=== PATIENT | female | born 1980 | race African-American/Black ===

== ENCOUNTER 2018-09-21 23:06 | Emergency (ER) | payer BC ==
[~2018-09-21] VITALS: Ht 177.8 cm; Wt 71.7 kg
[2018-09-21 23:58] VITALS: BP 167/97
--- NOTE | 2018-09-22 00:15 | PHYS DOC ---
Past Medical History Past Medical History: No Pertinent History, Hypertension (QUAN PATRICK) Past Surgical History: No Surgical History (QUAN PATRICK) Alcohol Use: None Drug Use: None (QUAN PATRICK) Adult General Chief Complaint Chief Complaint: CONSTIPATION HPI HPI Patient is a 38 year old F who has been having trouble with constipation and hard stools and today passed a hard stool and now has pain in her rectum and feels like something is "falling out". (QUAN PATRICK) Review of Systems Review of Systems Constitutional: Denies fever or chills Respiratory: Denies cough or shortness of breath Cardiovascular: Denies chest pain GI: Denies abdominal pain, nausea, vomiting. Reports constipation and rectal pain. : Denies dysuria or hematuria Musculoskeletal: Denies back pain or joint pain Integument: Denies rash or skin lesions Neurologic: Denies headache, focal weakness or sensory changes All other systems were reviewed and found to be within normal limits, except as documented in this note. (QUAN PATRICK) Allergies Allergies Allergies Coded Allergies Type Severity Reaction Last Updated Verified No Known Drug Allergies 05/10/13 No (ANOOP AREVALO DO) Physical Exam Physical Exam Constitutional: Well developed, well nourished, no acute distress, non-toxic appearance. Neck: Normal range of motion, no tenderness, supple, no stridor. Cardiovascular:Heart rate regular rhythm, no murmur Lungs & Thorax: Bilateral breath sounds clear to auscultation Abdomen: Bowel sounds normal, soft, no tenderness, no masses, no pulsatile mas ses. Skin: Warm, dry Back: No tenderness, no CVA tenderness. Extremities: No tenderness, no cyanosis, no clubbing, ROM intact, no edema. Neurologic: Alert and oriented X 3, normal motor function, normal sensory function, no focal deficits noted. Psychologic: Affect normal, judgement normal, mood normal. Rectal exam: Pt has protruding, engorged hemorrhoid, with small area of bleeding noted. She also has swelling and tenderness of perineum. Rectal exam was done and there is no hard stool in rectal vault. (QUAN PATRICK) Current Patient Data Vital Signs Vital Signs Date Time Temp Pulse Resp B/P (MAP) Pulse Ox O2 Delivery O2 Flow Rate FiO2 09/21/18 23:58 98.7 83 16 167/97 (120) 100 Room Air 98.7 (ANOOP AREVALO DO) EKG EKG [] (QUAN PATRICK) Radiology/Procedures Radiology/Procedures [] (QUAN PATRICK) Course & Med Decision Making Course & Med Decision Making Pertinent Labs and Imaging studies reviewed. (See chart for details) Pt has no abd pain and reports large hard stool today. No impaction noted. Large inflamed hemorrhoid present but without any signs of being thrombosed. Will write or colace and Anusol HC suppositories. Have recommended sitz baths, tucks pads and putting ice packs wrapped in towel in underwear. Recommend close f/u with PCP for recheck. (QUAN PATRICK) Dragon Disclaimer Dragon Disclaimer This electronic medical record was generated, in whole or in part, using a voice recognition dictation system. (QUAN PATRICK) Departure Departure Impression: Primary Impression: Hemorrhoid prolapse Additional Impression: Constipation Disposition: 01 HOME, SELF-CARE Condition: STABLE Referrals: JUSTINA LYLES MD (PCP) Patient Instructions: Constipation, Adult, [id number], Hemorrhoids, [id number] Additional Instructions: You have a large engorged hemorrhoid. Do sitz baths at home (warm water without soap to cleanse and soothe the tissue in the rectum and vaginal area). Ice packs in your underwear with a protective layer such as a washcloth between the skin and the ice. Follow up with your doctor. If symptoms are not improving, you may need to see a specialist. Scripts Ibuprofen (IBUPROFEN) 400 Mg Tablet 400 MG PO PRN Q6HRS PRN for INFLAMMATION, #15 TAB Prov: QUAN PATRICK 09/22/18 Docusate Sodium (COLACE) 100 Mg Capsule 1 CAP PO BID, #30 CAP Prov: QUAN PATRICK 09/22/18 Hydrocortisone Acetate (ANUSOL-HC) 25 Mg Supp.rect 1 SUPP RC BID, #28 SUPP 1 Refill Prov: QUAN PATRICK 09/22/18 Attending Signature Attending Signature I have reviewed the PA/PAINTER AND BODY MECHANIC APPRENTICE's note and plan of care. I was available for consultation as needed during the patient's visit in the emergency department. I agree with the clinical impression, plan, and disposition. (ANOOP AREVALO DO) Problem Qualifiers QUAN PATRICK Sep 22, 2018 00:15 ANOOP AREVALO DO Sep 26, 2018 05:09
[2018-09-22] MEDS ORDERED: HYDR25SU18 RC (00:21)
[2018-09-22] MEDS ORDERED: DOCU-109 PO (00:21)
[2018-09-22] MEDS ORDERED: IBUP-1027 PO (00:21)
== END 2018-09-22 00:45 | disposition home or self-care (01) ==
LOC: ER 23:06
DX: K64.8 Other hemorrhoids (principal); K59.00 Constipation, unspecified; I10 Essential (primary) hypertension
CPT/HCPCS: 99283